=== PATIENT | male | born 1985 | race Caucasian/White ===

== ENCOUNTER 2023-02-15 05:25 | Emergency (ER) | payer OTHER ==
[2023-02-15] MEDS ORDERED: Aspirin 81 MG Tab.Chew PO ONE (06:00)
[2023-02-15 06:20] LABS: CHLORIDE,CL 102 mEq/L (98-106); SODIUM,NA 142 mEq/L (136-145)
[2023-02-15 06:21] LABS: ESTIMATED GFR 88 mL/min (>=60)
[2023-02-15 06:33] LABS: PTT,PARTIAL THROMBOPLSTIN TIME 25.6 SEC (20.0-30.0)
== END 2023-02-15 06:41 | disposition home or self-care (01) ==
LOC: CC.ED 05:25
DX: R07.89 Other chest pain (principal)
CPT/HCPCS: 36415; 71046; 80053; 83690; 83735; 84484; 85025; 85610; 85730; 93005; 93010; 99284; 99285; A9270-GY

== ENCOUNTER 2023-07-22 08:52 | Emergency (ER) | payer OTHER ==
[2023-07-22 09:11] LABS: BASOPHILS ABSOLUTE AUTO 0.05 10^3/uL (0.00-0.50); BASOPHILS PERCENT AUTO 0.6 % (0-1); EOSINOPHILS ABSOLUTE AUTO 0.08 10^3/uL (0.00-1.50); HEMATOCRIT 46.3 % (42.0-52.0); HEMOGLOBIN 16.6 g/dL (14.0-18.0); IMMATURE GRAN ABSOLUTE AUTO 0.01 10^3/uL (0.00-0.49); IMMATURE GRAN PERCENT AUTO 0.1 % (0.0-4.9); LYMPHOCYTES ABSOLUTE AUTO 2.21 10^3/uL (0.60-5.00); LYMPHOCYTES PERCENT AUTO 27.5 % (24-44); MEAN CORPUSCULAR HEMOGLOBIN 27.9 pg (27.0-32.0); MEAN CORPUSCULAR HGB CONC 35.9 g/dL (32.0-36.0); MEAN CORPUSCULAR VOLUME 77.9 fL (83.0-97.0); MONOCYTES ABSOLUTE AUTO 0.54 10^3/uL (0.00-1.50); MONOCYTES PERCENT AUTO 6.7 % (0-10); NEUTROPHILS ABSOLUTE AUTO 5.14 x10^3/uL (1.80-8.00); NEUTROPHILS PERCENT AUTO 64.1 % (41-71); PLATELET COUNT,PLT 242 10^3/uL (150-400); RED BLOOD CELL COUNT 5.94 x10^6/uL (4.50-6.00)
[2023-07-22 09:28] LABS: ALANINE AMINOTRANSFERASE,ALT 53 U/L (12-78); ALBUMIN 4.4 g/dL (3.4-5.0); ALKALINE PHOSPHATASE 98 U/L (46-116); ASPARTATE AMNIOTRANSFERASE,AST 16 U/L (15-37); BILIRUBIN TOTAL 0.9 mg/dL (0.0-1.0); BLOOD UREA NITROGEN,BUN 12 mg/dL (7-18); C-REACTIVE PROTEIN 0.12 mg/dL (<=0.30); CALCIUM 9.2 mg/dL (8.4-10.1); CARBON DIOXIDE,CO2 28 mmol/L (21-32); CHLORIDE,CL 102 mEq/L (98-106); EST CRCL DRUG DOSING (CG) 105.63 mL/min; GLUCOSE RANDOM 103 mg/dL (75-99); POTASSIUM,K 4.2 mEq/L (3.5-5.0); PROTEIN TOTAL,TP 7.9 g/dL (6.4-8.2); SODIUM,NA 138 mEq/L (136-145)
[2023-07-22 09:42] LABS: ESTIMATED GFR 98 mL/min (>=60)
== END 2023-07-22 10:10 | disposition home or self-care (01) ==
LOC: CC.ED 08:52
DX: R07.81 Pleurodynia (principal)
CPT/HCPCS: 36415; 71046; 80053; 83735; 84484; 85025; 85379; 86140; 93005; 93010; 99284; 99285